=== PATIENT | female | born 1980 | race Caucasian/White ===

== ENCOUNTER 2024-08-25 12:26 | Outpatient (CLI) | payer MEDICARE, MEDICAID | END 2024-08-25 23:59 | disposition home or self-care (01) | LOC: MRI 12:26 | PROVIDERS: ATTEND Student in an Organized Health Care Education/Training Program | DX: M51.17 Intervertebral disc disorders with radiculopathy, lumbosacral region (principal); M48.07 Spinal stenosis, lumbosacral region | CPT/HCPCS: 72148 ==